=== PATIENT | male | born 1980 | race African-American/Black ===

== ENCOUNTER 2019-07-16 18:11 | Emergency (ER) | payer BC ==
[2019-07-16 18:19] VITALS: TEMP 98; BMI 30.5
--- NOTE | 2019-07-16 18:28 | PDOC ---
History of Present Illness - General Chief Complaint: Facial Droop Stated Complaint: RT SIDED FACIAL DROOP Time Seen by Provider: 07/16/19 18:28 History Source: Patient Exam Limitations: No Limitations - History of Present Illness Initial Comments: Pt is a 39 yo M, with no significant PMH, who is presenting via car with his for concerns of L-sided neck pain and "right facial droop". 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 The sensation lasts for a few minutes and then goes away on its own. Pt has never experienced this before, and denies any new lifting or straining. Pt denies any fevers/chills, headache, vision changes, syncope, chest pain, palpitations, SOB, nausea/vomiting, abdominal pain, urinary symptoms, diarrhea/constipation, or leg swelling. Allergies: NKDA PCP: Dr. Ardon Social: Pt denies any cigarette, alcohol, or drug use. Pt denies any recent travel or sick contacts. Surgical: no relevant history. Family: no relevant history. 07/16/19 18:48 Past History - Travel Traveled outside of the country in the last 30 days: No Close contact w/someone who was outside of country & ill: No - Past Medical History Allergies/Adverse Reactions: Allergies Allergy/AdvReac Type Severity Reaction Status Date / Time No Known Allergies Allergy Verified 07/16/19 18:19 Home Medications: Ambulatory Orders Methocarbamol [Robaxin -] 500 mg PO BID PRN #10 tablet 07/16/19 COPD: No - Suicide/Smoking/Psychosocial Hx Smoking History: Never smoked Neuro Specific PMHX - Complaint Specific PMHX Glaucoma: No Herniated Disk: No Laminectomy: No Migraine: No Multiple Sclerosis: No Neuropathy: No TIA: No Review of Systems - Review of Systems Able to Perform ROS?: Yes Is the patient limited Nepali proficient: No Constitutional: Yes: Weight Stable. No: Chills, Diaphoresis, Fever, Loss of Appetite, Malaise, Weakness HEENTM: No: Blurred Vision, Recent change in vision, Double Vision, Nose Congestion, Throat Pain, Throat Swelling, Difficulty Swallowing Respiratory: No: Cough, Orthopnea, Shortness of Breath Cardiac (ROS): No: Chest Pain, Edema, Irregular Heart Rate, Lightheadedness, Palpitations, Syncope, Chest Tightness ABD/GI: No: Constipated, Diarrhea, Nausea, Poor Appetite, Poor Fluid Intake, Vomiting : No: Burning, Dysuria, Frequency, Pain, Urgency Musculoskeletal: Yes: See HPI, Muscle Pain, Neck Pain. No: Back Pain, Joint Pain, Joint Swelling, Muscle Weakness, Joint Stiffness Integumentary: No: Change in Color, Rash Neurological: No: Headache, Numbness, Paresthesia, Seizure, Tingling, Weakness, Unsteady Gait, Ataxia, Dizziness Psychiatric: No: Sleep Pattern Change, Change in Appetite Endocrine: No: Increased Urine, Change in Weight Hematologic/Lymphatic: No: Anemia, Blood Clots, Easy Bleeding, Easy Bruising All Other Systems: Reviewed and Negative *Physical Exam - Vital Signs Last Vital Signs Temp Pulse Resp BP Pulse Ox 98 F 93 H 18 165/103 H 97 07/16/19 18:16 07/16/19 18:16 07/16/19 18:16 07/16/19 18:16 07/16/19 18:16 - Physical Exam Comments: HTN 165/103, pt afebrile. Pt appears to be in muscle spasm with his shoulders lifted towards his chin. Athletic body habitus. Pt alert and oriented x3. 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 Cerebellar exam WNL. No midline spinal tenderness, step-offs, or crepitus. Tightness appreciated in b/l trapezius, with no TTP. Head normocephalic, atraumatic. Eyes PERRLA, EOMI. Oropharynx without erythema or exudates, no LAD b/l. No nasal congestion, hearing intact. Clear heart sounds, S1/S2, no JVD, b/l pedal edema, or heart murmur. Clear lung sounds, no respiratory distress, wheezes, crackles, or accessory muscle use. No abdominal or CVA tenderness to palpation, no rebound, no guarding. Abdomen soft, non-distended, and with normoactive bowel sounds. Skin without jaundice or rash. 07/16/19 18:58 NIH Stroke Scale - Last Known Well Date/Time & Onset Date Last Known Well: 07/16/19 Time Last Known Well: 16:00 - Initial Evaluation Level of consciousness: Alert (L sided neck muscle spasm; not concerning for TIA /CVA) Ask patient the month and their age: Answers both correctly Ask patient to open & close eyes; make fist and let go: Obeys both correctly Best gaze (horizontal eye movement): Normal Visual field testing: No visual field loss Facial paresis (Show teeth/raise eyebrows/close eyes tight): Normal symmetrical movement Motor Function: Left Arm: Normal Motor Function: Right Arm: Normal (extends arm 90 (or 45) degrees for 10 seconds without drift Motor Function: Left Leg: Normal (extends leg 30 degrees for 5 seconds without drift) Motor Function: Right Leg: Normal (extends leg 30 degrees for 5 seconds without drift) Limb Ataxia: No ataxia Sensory(Use pinprick test arms,legs,trunk,face/side to side): Normal Best language (Describe picture, name items, read sentences): No Aphasia Dysarthria (read several words): Normal articulation Extinction and Inattention: No abnormality - Total Score NIH Stroke Scale Score: 0 Critical Care Time/MDM Note - Medical Decision Making Note: Pt was seen at bedside, also will be seen by attending Dr. Cardozo. Pt presenting with complaints of neck "cramping" and "facial drooping". On exam, pt has no FNDs, less concerning for TIA/CVA. Pt appears to be in muscle spasm, sitting upright on the bed with his shoulders tensed. 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 Will provide PO medications and reassess. Provided 10 mg PO valium, 650 mg tylenol, and lidocaine patch for improvement of spasm and discomfort. Will continue to reassess pt and monitor for symptomatic improvement. 07/16/19 19:00 Pts head held in spasm. Also providing 25 mg PO benadryl. PT not admitting to any pharmaceutical use, but providing benadryl in case of dystonic reaction to medications. 07/16/19 19:26 ECG: NSR (HR 75, AR 180, QRS 92, QTc 424). No prior ECG for comparison. 07/16/19 20:10 Pt improved with medications, no further spasm. Sent robaxin PO to pt pharmacy. Pt can f/u outpatient with PCP. Strict return precautions provided with pt understanding. 07/16/19 20:20 *DC/Admit/Observation/Transfer Diagnosis at time of Disposition: Muscle spasm - Discharge Dispostion Disposition: HOME Condition at time of disposition: Improved Decision to Admit order: No - Prescriptions Prescriptions: Methocarbamol [Robaxin -] 500 mg PO BID PRN #10 tablet PRN Reason: Muscle Spasms - Referrals Referrals: FriendRicky [Primary Care Provider] - - Patient Instructions Printed Discharge Instructions: DI for Muscle Spasm Additional Instructions: You were seen in the ER today for muscle spasm. Please follow-up with your primary care doctor within 1-2 days to discuss your visit and make sure your symptoms have improved. Please return to the ER if you have any worsening pain, development of fevers or chills, loss of consciousness, inability to tolerate food or fluids, or any other concerns. I have sent medications to your pharmacy. Please take these medications as prescribed. Please avoid this medication before operating any machinery or driving, as it can make you drowsy. It may help to take it before bedtime. - Post Discharge Activity
[2019-07-16] MEDS ORDERED: diazePAM 5 MG TABLET PO ONE (18:39)
[2019-07-16] MEDS ORDERED: LIDOCAINE 5% TOPICAL PATCH TP ONE (18:41)
[2019-07-16] MEDS ORDERED: ACETAMINOPHEN 325 MG TABLET (FP) PO ONE (18:41)
[2019-07-16] MEDS ORDERED: ACETAMINOPHEN 325 MG TABLET (FP) ONE (18:51)
[2019-07-16] MEDS ORDERED: diazePAM 5 MG TABLET ONE (18:52)
[2019-07-16] MEDS ORDERED: LIDOCAINE 5% TOPICAL PATCH ONE (18:52)
[2019-07-16] MEDS ORDERED: diphenhydrAMINE HCL 25 MG CAPSULE (FP) PO ONE ×2 (19:20→19:34)
--- NOTE | 2019-07-16 19:30 | PDOC ---
Documentation entered by Laura George SCRIBE, acting as scribe for Virgie Cardozo MD. Virgie Cardozo MD: This documentation has been prepared by the marcelloibe, Laura George SCRIBE, under my direction and personally reviewed by me in its entirety. I confirm that the documentation accurately reflects all work, treatment, procedures, and medical decision making performed by me. Attending Attestation - Resident Resident Name: RaimundoShanice - ED Attending Attestation I have performed the following: I have examined & evaluated the patient, The case was reviewed & discussed with the resident, I agree w/resident's findings & plan, Exceptions are as noted - HPI HPI: 07/16/19 19:22 The patient is a 39-year-old male with no reported past medical history who presents to the emergency department with right-sided muscle spasm. The patient reports he is able to move all his extremities, denies pain. Denies prior similar episodes. Denies lifting heavy lifting. Allergies: NKDA PCP: Dr. Ardon. - Physicial Exam PE: GENERAL: Awake, alert, and fully oriented, in no acute distress HEAD: No signs of trauma EYES: PERRLA, EOMI, sclera anicteric, conjunctiva clear ENT: Auricles normal inspection, hearing grossly normal, nares patent, oropharynx clear without exudates. Moist mucosa NECK: +Torticollis with head turned to the R, +muscle spasm to the trapezius on R. Supple, no lymphadenopathy, JVD, or masses EXTREMITIES: Normal range of motion, no edema. No clubbing or cyanosis. No cords, erythema, or tenderness NEUROLOGICAL: Cranial nerves II through XII grossly intact. Normal speech, normal gait. Motor and sensation intact SKIN: Warm, dry, normal turgor, no rashes or lesions noted. - Medical Decision Making Pt presents with torticollis likely due to muscle spasm. Will give valium in ED.
[2019-07-16 21:01] VITALS: BP 159/109; PULSE 71
[2019-07-16] MEDS ORDERED: LIDOCAINE PATCH REMOVAL MC SCH (22:00)
--- NOTE | 2019-07-17 16:59 | EKG ---
Test Reason : Blood Pressure : / mmHG Vent. Rate : 075 BPM Atrial Rate : 075 BPM P-R Int : 180 ms QRS Dur : 092 ms QT Int : 380 ms P-R-T Axes : 039 024 007 degrees QTc Int : 424 ms NORMAL SINUS RHYTHM NORMAL ECG NO PREVIOUS ECGS AVAILABLE Confirmed by MD SRINI, LING ([id number]) on 07/17/2019 4:59:11 PM Referred By: Confirmed By:LING MILLIGAN MD
== END 2019-07-16 21:01 | disposition home or self-care (01) ==
LOC: JER 18:11
DX: G24.3 Spasmodic torticollis (principal)
CPT/HCPCS: 93005; 93010; 99282-25